=== PATIENT | male | born 1995 | race Caucasian/White ===

== ENCOUNTER 2018-01-06 13:40 | Inpatient (IN) | payer OTHER ==
--- NOTE | 2018-01-06 13:50 | ED ---
GI/ HPI - HPI Summary HPI Summary: A 22 y/o brought in by ambulance presents to the ED c/o N/V since 01/04/2018. He also c/o diarrhea, abd pain, and his urine becoming darker each time he urinates. He was seen at [facility] today and was told he has Marlen-Daniel virus. He also states that he was taking ibuprofen 2 weeks ago when he went to [facility] and was told he tested positive for strep throat but stopped because the pt only has one kidney and was told to stop taking ibuprofen. Based on the lab results from [facility] the pt had a creatinine of 1.9 when his baseline is 1.1 and a BUN of 21. He also claims to have a fever of 103. He denies blood in stool, Chills, Erythema (eyes), Sore throat, Chest pain, Shortness of Breath, Cough, Dysuria, Hematuria, Myalgia, Edema, Rash and Dizziness. - History of Current Complaint Stated Complaint: NAUSEA/VOMITING Hx Obtained From: Patient Onset/Duration: Started Days Ago, Still Present Timing: Lasting Days Severity: Moderate Current Severity: Moderate Location of Pain: LLQ Associated Signs and Symptoms: Positive: Nausea, Vomiting, Diarrhea, Fever - Allergy/Home Medications Allergies/Adverse Reactions: Allergies Allergy/AdvReac Type Severity Reaction Status Date / Time No Known Allergies Allergy Verified 01/06/18 14:32 Home Medications: Home Medications NK [No Home Medications Reported] 01/06/18 [History Confirmed 01/06/18] PMH/Surg Hx/FS Hx/Imm Hx Endocrine/Hematology History: Denies: Hx Diabetes Cardiovascular History: Denies: Hx Hypertension History: Reports: Other Problems/Disorders - has 1 kidney Sensory History: Reports: Hx Contacts or Glasses - Family History Known Family History: Positive: Hypertension, Diabetes Negative: Cardiac Disease Review of Systems Positive: Fever. Negative: Chills Negative: Erythema Negative: Sore Throat Negative: Chest Pain Negative: Shortness Of Breath, Cough Gastrointestinal: Negative - blood in stool Positive: Abdominal Pain, Vomiting, Diarrhea, Nausea Positive: other - urine darker each time. Negative: dysuria, hematuria Negative: Myalgia, Edema Negative: Rash Neurological: Negative - Dizziness All Other Systems Reviewed And Are Negative: Yes Physical Exam - Summary Physical Exam Summary: Constitutional: Well-developed, Well-nourished, Alert. (-) Distressed Skin: Warm, Dry HENT: Normocephalic; Atraumatic Eyes: Conjunctiva normal Neck: Musculoskeletal ROM normal neck. (-) JVD, (-) Stridor, (-) Tracheal deviation Cardio: Rhythm regular, rate normal, Heart sounds normal; Intact distal pulses; The pedal pulses are 2+ and symmetric. Radial pulses are 2+ and symmetric. (-) Murmur Pulmonary/Chest wall: Effort normal. (-) Respiratory distress, (-) Wheezes, (-) Rales Abd: Soft, Tenderness LLQ, (-) Distention, (-) Guarding, (-) Rebound Musculoskeletal: (-) Edema Lymph: (-) Cervical adenopathy Neuro: Alert, Oriented x3 Psych: Mood and affect Normal Triage Information Reviewed: Yes Vital Signs Reviewed: Yes Diagnostics - Laboratory Result Diagrams: 01/06/18 14:17 01/06/18 14:17 Lab Statement: Any lab studies that have been ordered have been reviewed, and results considered in the medical decision making process. - Radiology CXR Radiology Interpretation Completed By: Radiologist - Bilateral interstitial infiltrates. This report has been reviewed by the ED physician. - EKG 14:50 Cardiac Rate: Tachycardia - 142 EKG Rhythm: Sinus Tachycardia Summary of EKG Findings: No STEMI GIGU Course/Dx - Course Course Of Treatment: 22 y/o brought in by ambulance presents to the ED c/o N/V since 01/04/2018. His PE revealed LLQ tenderness. His CXR revealed bilateral interstitial infiltrates. His EKG showed that he was tachycardic. Based on the lab results from [facility] the pt had a creatinine of 1.9 when his baseline is 1.1 and a BUN of 21. Dx: gastroenteritis, dehydration. The pt will be admitted to Dr. Brantley, hospitalist. - Diagnoses Provider Diagnoses: Gastroenteritis, Dehydration - Physician Notifications Discussed Care Of Patient With: Elmer Brantley Time Discussed With Above Provider: 17:30 Instructed by Provider To: Admit As Inpatient Discharge - Sign-Out/Discharge Documenting (check all that apply): Patient Departure - Admit - Discharge Plan Condition: Fair Disposition: ADMITTED TO [facility] - Attestation Statements Document Initiated by Scribe: Yes Documenting Scribe: Kalyan Dhillon Provider For Whom Scribe is Documenting (Include Credential): Boris Barrios MD Scribe Attestation: I, Kalyan Dhillon, scribed for Boris Barrios MD on 01/06/18 at 1905.
[2018-01-06] MEDS ORDERED: Acetaminophen TAB* 325 MG PO ONE (14:14)
--- OUTSIDE RECORDS SUMMARY | 2018-01-06 14:24 | XMS REPORT | Continuity of Care Document ---
:1995 External Reference #:[id number] Author Name Arturo Yates MD Address [address] [place] [address] Care Team Providers Name Role Phone [facility] Care Team Information Executive Director Of Nursing Unavailable [facility] Primary Care Physician Unavailable Payers Type Date Identification Numbers Payment Provider Subscriber Effective: Policy Number: [id number] [employer] Mike Lange 2017 Admin [employer] Name: Student Insurance [address] PayID: [id number] [place] [address] Advance Directives Description No Information Available Problems Date Description Provider Status Onset: 01/03/2018 Obstructive sleep apnea syndrome Arturo Yates MD Active Onset: 01/03/2018 Hypertrophy of tonsils Arturo Yates MD Active Onset: 01/03/2018 Right conductive hearing loss Arturo Yates MD Active Family History Date Family Member(s) Problem(s) Comments General Allergies General Bleeding Disorders General Diabetes General Migraine Mother Allergies Mother Bleeding Disorders Mother Migraine Social History Type Date Description Comments Sex Unknown Occupation Student Tobacco Use Start: Unknown Never Smoked Cigarettes Tobacco Use Start: Unknown Never Smoked Cigars Tobacco Use Start: Unknown Never Smoked A Pipe Smokeless Tobacco Never Used Smokeless Tobacco ETOH Use Currently occasionally consumes alcohol Allergies, Adverse Reactions, Alerts Description No Known Drug Allergies Medications Medication Date Status Form Strength Qnty SIG Indications Ordering Provider No Active 01/04/20 Active Unknown Medications 18 Benzonatate Hx Capsules 100mg Unknown - 01/04/20 18 Penicillin V Hx Tablets 500mg Unknown Potassium 00 - 01/04/20 18 Ventolin HFA Hx Aerosol 108(90Base) Unknown 00 - mcg/Act 01/04/20 18 Immunizations Description No Information Available Vital Signs Date Vital Result Comment 01/03/2018 8:47am Weight 230.50 lb Weight 104.555 kg Height 70 inches 5'10" Height in cm's 177.8 cm BMI (Body Mass Index) 33.1 kg/m2 Results Description No Information Available Procedures Date Code Description Status 01/03/2018 37283 Tympanometry Completed 01/03/2018 70110 Comprehensive Audiogram Completed Encounters Type Date Location Provider Dx Diagnosis Office Visit 01/03/2018 [place],[facility] Arturo Yates, H90.A11 Condctv hear 8:45a 03/04/07 loss, uni, r ear with rstrcd hear cntra side J35.1 Hypertrophy of tonsils G47.33 Obstructive sleep apnea (adult) (pediatric) Plan of Treatment Future Appointment(s):07/04/2018 8:30 am - Arturo Yates MD at [place],[facility] - Arturo Yates MDH90.A11 Conductive hearing loss, unilateral , right ear with restricted hearing on the contralateral sideComments:Patient with right-sided conductive hearing loss previous history of ear surgery, the patient is going to get some information will, ear surgery he has had, in the meantime I also think he should discuss with his parents having his tonsils out. This would improve his apnea symptoms significantly. Ifthis does not resolve his sleep apnea I think a sleep study after tonsillectomy would be helpful.J35.1 Hypertrophy of mbznikmD86.33 Obstructive sleep apnea (adult) ( pediatric)
[2018-01-06 14:27] LABS: Hematocrit 38 % (42-52); Hemoglobin 12.6 g/dl (14.0-18.0); Mean Corpuscular HGB Conc 33 g/dl (31-36); Mean Corpuscular Hemoglobin 27 pg (27-31); Mean Corpuscular Volume 80 fL (80-94); Mean Platelet Volume 8.9 fL (7.4-10.4); Platelet Count 175 10^3/ul (150-450); Red Blood Count 4.76 10^6/ul (4.00-5.40); Red Cell Distribution Width 14 % (10.5-15); White Blood Count 13.8 10^3/ul (3.5-10.8)
[2018-01-06] MEDS: NS 0.9% 1000 ML* 2,000 ML IV ONE (14:28)
[2018-01-06] MEDS ORDERED: NS 0.9% 1000 ML* 1,000 ML IV ONE (14:43)
[2018-01-06 14:55] LABS: EGFR Non-African American 48.8 (>60)
[2018-01-06 15:28] LABS: ABS Basophils 0 10^3/ul (0-0.2); ABS Eosinophils 0.2 10^3/ul (0-0.6); ABS Monocytes 0.9 10^3/ul (0-0.8); ABS Neutrophils 11.7 10^3/ul (1.5-7.7); ABS Nucleated RBC 0 10^3/ul; Eosinophil % 1.5 % (0-6); Lymphocyte % 7.1 % (25-47); Nucleated Red Blood Cells % 0
[2018-01-06] MEDS ORDERED: cefTRIAXone(*) 1 GM in NS 0.9% 50 ML* 50 ML IVPB ONE (15:46)
[2018-01-06] MEDS ORDERED: Ondansetron INJ* 2 MG/ML VIAL IV PRN (16:37)
[2018-01-06 17:12] LABS: Urine Appearance Cloudy; Urine Blood 1+ (Negative); Urine Color Amber; Urine Ketones Trace (Negative); Urine Protein 2+(100 mg/dL) (Negative); Urine Red Blood Cell Trace(0-2/hpf) (Absent); Urine Specific Gravity 1.017 (1.010-1.030); Urine Urobilinogen Negative (Negative); Urine White Blood Cell 3+(>20/hpf) (Absent)
[2018-01-06] MEDS: NS 0.9% 1000 ML* 1,000 ML IV SCH ×2 (19:04→23:56)
[2018-01-06] MEDS: Vancomycin CAP* 125 MG CAP PO SCH (20:02)
[2018-01-06] MEDS: Acetaminophen TAB* 325 MG PO PRN (21:13)
[2018-01-06] MEDS ORDERED: Ibuprofen TAB* 400 MG PO ONE (21:25)
--- NOTE | 2018-01-06 21:36 | HP ---
ADMISSION HISTORY AND PHYSICAL: DATE OF ADMISSION: 01/06/18 PRIMARY CARE PROVIDER: [facility]. HEALTHCARE PROXIES: Parents. CODE STATUS: Full. SOURCE OF INFORMATION: History obtained from interview with the patient, review of [facility] labs. RELIABILITY: Excellent. CHIEF COMPLAINT: Fever and abnormal labs from [facility]. 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 At [place], he had a positive rapid strep test, for which he was started on 10 days of penicillin. At that time, labs indicated white blood cell count of 18 with a left shift and a creatinine of 1.1. At the same time, he had EBV serology sent and did not return until , consistent with early acute EBV. The patient notes that his cough continued for approximately 5 days after 12/23/17, while on the penicillin began to feel better. His last fever of 102 had been around 12/27/17. He had repeat labs on that day at [facility], which were notable for stable creatinine 1.0 and a white blood cell count now of 5.9. He had been taking ibuprofen 800 mg every 8 hours for 4 to 5 days prior to 12/27/17 labs. After , he felt completely recovered, back to his baseline, went out with his friends 3 days prior to presentation and woke up 2 days prior to presentation with nausea, vomiting, and diarrhea. The diarrhea persisted and was occurring every 2 hours. He was unable to eat. He had vomiting. That did not stop for 2 days. He also noted fevers for the last 2 days as high as 104 yesterday, better with Tylenol as well as Motrin. He noted abdominal pain that was relieved with his bowel movements and intermittent shortness of breath, but no headache, lightheadedness, loss of consciousness, changes in the vision, or skin changes other than rectal irritation from his frequent bowel movements. Because of the persistent fevers, diarrhea, nausea and vomiting, he presented to [facility] where repeat labs indicated worsening renal function and a leukocytosis, for which he was sent to [facility] ED. When seen by this author, he indicates his diarrhea is continuing every 1 to 2 hours. Denies chest pain or shortness of breath. He is febrile and feels palpitations with his notable tachycardia to 144 beats per minute. 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 He has a right myringotomy as a child. He had enlarged tonsils as a child with frequent throat infections; asthma as a child, last use of inhaler 8 years prior to presentation. MEDICATIONS: No home medications other than recent 10-day course of penicillin starting on 12/23/17, ending 10 days after that. ALLERGIES: No allergies. FAMILY HISTORY: Significant for a mother with hypertension. His paternal grandfather had CAD. SOCIAL HISTORY: No tobacco. Drinks alcohol once every other week. No illicits. 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 REVIEW OF SYSTEMS: As indicated above on 12/23/17 including fevers, diarrhea, sore throat, nausea, vomiting, inability to eat. Other systems reviewed and negative. PHYSICAL EXAMINATION GENERAL: Well appearing gentleman, lying 20 degrees in bed. HEENT: His oropharynx has enlarged tonsils. No exudate. NECK: He has no palpable lymphadenopathy in the cervical, anterior or posterior chains or supraclavicular. He did have some tenderness to palpation in his right cervical chain. LUNGS: Clear to auscultation. HEART: He has tachycardic heart rate. Regular rhythm. No murmurs, rubs, or gallops. ABDOMEN: Soft, nontender, and nondistended with positive bowel sounds. EXTREMITIES: Warm and well perfused with less than 2 second cap refill. NEUROLOGIC: He is alert and oriented x3. His cranial nerves II through XII were intact. PSYCHIATRIC: He has no apparent anxiety, agitation, or depression. DIAGNOSTIC STUDIES/LAB DATA: Labs reviewed. BUN is 19, creatinine is 1.77. His total bilirubin is 2.3 with an AST of 12, an ALT of 19, and alk phos of 70. CRP is 185. Lipase less than 10. Lactic acid 1.6. White blood cell count is 13.8, 84.9% neutrophils, his hemoglobin is 12.6, platelets 175. Urine is pending. EKG: Sinus tachycardia. Chest x-ray is pending. ASSESSMENT AND PLAN: This is a 22-year-old man with recent diagnosis of rapid strep throat as well as serology consistent with acute EBV at the same time, recently finished 10-day course of penicillin on 01/02/18, now with high fevers and diarrhea. 1. Sepsis. Stool culture sent as well as C. diff in the setting of recent antibiotics. Given ceftriaxone empirically in the emergency room. Blood cultures drawn after seen by this author. We will treat with vancomycin orally empirically for C. diff colitis until results return. He has received 4 L of fluid. Two liters of IV fluids were administered in [facility] prior to presentation. I will continue for another 3 L at 250 cc per hour. Check urine and blood, as indicated above stool and check chest x-ray, which has not yet been completed. Repeat labs tomorrow along with CRP. Ceftriaxone ordered to continue until blood cultures are negative or other etiology is identified. Check for influenza. 2. Acute kidney injury in the setting of dehydration from fever, nausea, vomiting, diarrhea and Motrin use, potentially with acute tubular necrosis as etiology with Motrin. Received 4 L thus far. We will continue with 3 additional liters, follow for heart rate improvement. Repeat tomorrow. Hold NSAIDs. Discussed withholding NSAIDs in the future with the patient, who understands. Other considerations for infectious etiology could include peritonsillar or deep space neck abscesses. The patient has no pain unless deep palpation on the right. I favor holding on scanning his neck until aforementioned about imaging and testing has resulted and elucidates the etiology or is negative, but attention to deep space of his neck and/or tonsils as the source of infection should be paid should no other etiology be identified. Additionally, diagnosis of EBV quite possibly on 12/23/17 with results on . The fevers can continue for 2 weeks and he is not outside the realm, but possible that this is mononucleosis. However, he did have a period of approximately 8 days that he was well without fever arguing against this as sole etiology of his presenting sepsis. DVT prophylaxis: Low risk. Ambulate ad markell and compression stockings. TIME SPENT: Over 60 minutes of time was spent in admission of this patient and greater than half was spent [id number] with the patient. [id number]/[facility] #: [id number] [facility]
[2018-01-07] MEDS: Vancomycin CAP* 125 MG CAP PO SCH (00:24)
[2018-01-07] MEDS: NS 0.9% 1000 ML* 1,000 ML IV SCH (03:57)
[2018-01-07 07:45] LABS: ABS Basophils 0 10^3/ul (0-0.2); ABS Eosinophils 0.3 10^3/ul (0-0.6); ABS Lymphocytes 1.3 10^3/ul (1.0-4.8); ABS Neutrophils 10.2 10^3/ul (1.5-7.7); ABS Nucleated RBC 0 10^3/ul; Eosinophil % 2.6 % (0-6); Hematocrit 34 % (42-52); Hemoglobin 11.2 g/dl (14.0-18.0); Lymphocyte % 9.7 % (25-47); Mean Corpuscular HGB Conc 33 g/dl (31-36); Mean Corpuscular Hemoglobin 27 pg (27-31); Mean Corpuscular Volume 80 fL (80-94); Mean Platelet Volume 9.6 fL (7.4-10.4); Nucleated Red Blood Cells % 0; Platelet Count 175 10^3/ul (150-450); Red Blood Count 4.21 10^6/ul (4.00-5.40); Red Cell Distribution Width 14 % (10.5-15); White Blood Count 12.9 10^3/ul (3.5-10.8)
[2018-01-07 08:07] LABS: EGFR Non-African American 72.2 (>60)
[2018-01-07] MEDS ORDERED: Magnesium Sulfate IV* 3 GM in NS 0.9% 100 ML* 100 ML IVPB ONE (08:10)
[2018-01-07] MEDS: Lactobacillus Acidophilus* 1 TAB PO SCH ×2 (08:43→20:36)
[2018-01-07] MEDS ORDERED: Potassium Chloride LIQUID* 20 MEQ PACKET PO SCH (10:00)
[2018-01-07] MEDS: KCL 20 MEQ/100 ML IVPREMIX* 20 MEQ/100 ML BAG IV SCH ×4 (11:23→22:42)
--- NOTE | 2018-01-07 11:29 | PN ---
Subjective Date of Service: 01/07/18 Interval History: patient reports he is feeling "much better today" but continue to have some mild N/V and diarrhea every 2-3 hours. He denies fever or chills today. No abdominal pain at rest but report RUQ tenderness on exam. Mild sore throat. urinating well - yellow urine. Denies back pain. Objective Active Medications: Acetaminophen (Tylenol Tab*) 650 mg PO Q4H PRN PRN Reason: FEVER/PAIN Last Admin: 01/06/18 21:13 Dose: 650 mg Ceftriaxone Sodium 1 gm/ (Sodium Chloride) 50 mls @ 200 mls/hr IVPB Q24H [facility] Sodium Chloride (Ns 0.9% 1000 Ml*) 1,000 mls @ 250 mls/hr IV PER RATE [facility] Stop: 01/08/18 20:44 Last Admin: 01/07/18 03:57 Dose: 250 mls/hr Potassium Chloride (Potassium Chloride 20 Meq/100 Ml Ivpremix*) 20 meq in 100 mls @ 50 mls/hr IV Q2H [facility] Stop: 01/07/18 14:59 Last Admin: 01/07/18 11:23 Dose: 50 mls/hr Lactobacillus Rhamnosus (Lactobacillus Acidophilus*) 1 tab PO BID [facility] Last Admin: 01/07/18 08:43 Dose: 1 tab Ondansetron HCl (Zofran Inj*) 4 mg IV Q4H PRN PRN Reason: NAUSEA/VOMITING Last Admin: 01/06/18 19:25 Dose: 4 mg Vital Signs - 8 hr 01/07/18 01/07/18 05:19 08:00 Temperature 98.8 F Pulse Rate 121 Respiratory 17 18 Rate Blood Pressure 119/55 (mmHg) O2 Sat by Pulse 100 Oximetry Oxygen Devices in Use Now: None Appearance: 22 yo well developed male sitting up in bed A+Ox3 in NAD. Appears nontoxic Eyes: No Scleral Icterus, PERRLA Ears/Nose/Mouth/Throat: NL Teeth, Lips, Gums, Clear Oropharnyx, Mucous Membranes Moist, - - 2+ tonsils, uvula midline - mild erythema, no exudate noted Neck: NL Appearance and Movements; NL JVP, - - right cervical chain tenderness to deep palpation Respiratory: Symmetrical Chest Expansion and Respiratory Effort, Clear to Auscultation Cardiovascular: NL Sounds; No Murmurs; No JVD, RRR, No Edema Abdominal: - - nondistended soft, mild tenderness in RUQ. NL BS Extremities: No Edema, No Clubbing, Cyanosis Skin: No Rash or Ulcers, No Nodules or Sclerosis Neurological: Alert and Oriented x 3, NL Sensation, NL Muscle Strength and Tone Lines/Tubes/Other Access: Clean, Dry and Intact Peripheral IV Nutrition: Taking PO's Result Diagrams: 01/07/18 06:24 01/07/18 06:24 Microbiology and Other Data: Microbiology 01/06/18 16:00 Stool Culture - Preliminary Stool Strep Group A Stool Gross Appearance - Final Shiga Toxin I & II - Final Negative Shiga Toxin 1 & 2 C. 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 - Patient Problems (1) Sepsis Comment: - Unclear source. High fevers last night now resolved. Improving, stable, appears nontoxic. lactic negative. He has recieved 8 L IVFs continues to have mild tachycardia but overall improvement. - Urine cx negative. Blood cx pending - Chest xray negative. Influenza negative - elevated CRP. Unclear source. Possible deep space neck abscess or peritonsil abscess is on the differential - however I have lower suspicion for this - at this point he is improving and renal function is still elevated (and only has 1 kidney) therefore I am hesistant to give him IV contrast. Continue IVFs, abx and if tomorrow he continues to have tenderness in right cervical chain and/or he develops a high fever or increase SBC - consider imaging neck. (2) HANANE (acute kidney injury) Comment: - creatinine 1.7 on admission suspect secondary to dehydration and NSAID use. CReatinine trending down with IVFs. Repeat BMP in am. (3) Nausea vomiting and diarrhea Comment: - Vomiting resolved. Continues to have frequent stools and mild nausea. Possible gastroenertitis? - Abdomen exam fairly benign (will obtain GB us- mild RUQ tenderness) - C-diff negative - stop po vanco - zofran prn - continue IVFs (4) Electrolyte abnormality Comment: - replace lytes, recheck in am (5) DVT prophylaxis Comment: encourage ambulation (6) Full code status Status and Disposition: inpatient with sepsis. [employer] student. Parents are flying in from [place].
[2018-01-07] MEDS ORDERED: NS 0.45% 1000 ML BAG* 1,000 ML IV SCH (13:00)
[2018-01-07] MEDS ORDERED: cefTRIAXone(*) 1 GM in NS 0.9% 50 ML* 50 ML IVPB SCH (17:00)
[2018-01-07 18:23] LABS: ABS Basophils 0 10^3/ul (0-0.2); ABS Eosinophils 0.5 10^3/ul (0-0.6); ABS Lymphocytes 2.1 10^3/ul (1.0-4.8); ABS Monocytes 1.1 10^3/ul (0-0.8); ABS Neutrophils 10.4 10^3/ul (1.5-7.7); ABS Nucleated RBC 0 10^3/ul; Eosinophil % 3.8 % (0-6); Hematocrit 35 % (42-52); Hemoglobin 11.4 g/dl (14.0-18.0); Mean Corpuscular HGB Conc 33 g/dl (31-36); Mean Corpuscular Hemoglobin 27 pg (27-31); Mean Corpuscular Volume 82 fL (80-94); Nucleated Red Blood Cells % 0; Platelet Count 185 10^3/ul (150-450); Red Blood Count 4.19 10^6/ul (4.00-5.40); Red Cell Distribution Width 14 % (10.5-15); White Blood Count 14.1 10^3/ul (3.5-10.8)
[2018-01-07 18:37] LABS: EGFR Non-African American 102.6 (>60)
[2018-01-07] MEDS: diPHENhydraMINE PO* 25 MG PO PRN (20:36)
[2018-01-07] MEDS: Acetaminophen TAB* 325 MG PO PRN (20:43)
--- NOTE | 2018-01-07 22:18 | PN ---
Hospitalist Progress Note Date of Service: 01/07/18 call for redness in arms after ceftriaxone infusion. one hour after and rash. stopped infusion and changed abx to cipro
[2018-01-08 07:49] LABS: ABS Basophils 0 10^3/ul (0-0.2); ABS Eosinophils 0.7 10^3/ul (0-0.6); ABS Lymphocytes 2.4 10^3/ul (1.0-4.8); ABS Neutrophils 7.6 10^3/ul (1.5-7.7); ABS Nucleated RBC 0 10^3/ul; Eosinophil % 5.8 % (0-6); Hematocrit 34 % (42-52); Hemoglobin 11.2 g/dl (14.0-18.0); Lymphocyte % 20.3 % (25-47); Mean Corpuscular HGB Conc 33 g/dl (31-36); Mean Corpuscular Hemoglobin 26 pg (27-31); Mean Corpuscular Volume 79 fL (80-94); Mean Platelet Volume 9.1 fL (7.4-10.4); Nucleated Red Blood Cells % 0; Platelet Count 216 10^3/ul (150-450); Red Blood Count 4.25 10^6/ul (4.00-5.40); Red Cell Distribution Width 14 % (10.5-15); White Blood Count 11.7 10^3/ul (3.5-10.8)
[2018-01-08 08:34] LABS: EGFR Non-African American 131.5 (>60)
[2018-01-08] MEDS ORDERED: Ciprofloxacin 400MG IVPREMIX(* 400 MG/200 ML BAG IVPB SCH (09:00)
[2018-01-08] MEDS: Lactobacillus Acidophilus* 1 TAB PO SCH ×2 (09:04→19:33)
[2018-01-08] MEDS ORDERED: Potassium Chlor TAB* 20 MEQ TAB.ER PO ONE (10:33)
[2018-01-08] MEDS ORDERED: Magnesium Sulfate 2 GM IV* 2 GM/50 ML BAG IVPB ONE (18:29)
[2018-01-08] MEDS ORDERED: Albuterol 2.5 MG/3 ML NEB.SOL* (0.083%) INH PRN (18:29)
--- NOTE | 2018-01-08 18:37 | PN ---
Subjective Date of Service: 01/08/18 Interval History: Patient seen and examined, diarrhea improving, states his breathing feels off with inspiration but not SOB. Per mother, patient had history of asthma. No fevers or chills, remains with cough. Objective Active Medications: Acetaminophen (Tylenol Tab*) 650 mg PO Q4H PRN PRN Reason: FEVER/PAIN Last Admin: 01/07/18 20:43 Dose: 650 mg Albuterol (Ventolin 2.5 Mg/3 Ml Neb.Zita*) 2.5 mg INH Q4H PRN PRN Reason: SOB/WHEEZING Diphenhydramine HCl (Benadryl Po*) 25 mg PO Q6H PRN PRN Reason: ITCHING Last Admin: 01/07/18 20:36 Dose: 25 mg Ciprofloxacin/Dextrose (Cipro 400 Mg Ivpremix(*)) 400 mg in 200 mls @ 200 mls/ hr IVPB Q12H [facility] Last Admin: 01/08/18 09:04 Dose: 200 mls/hr Magnesium Sulfate (Magnesium Sulfate 2 Gm Iv*) 2 gm in 50 mls @ 50 mls/hr IVPB ONCE ONE Stop: 01/08/18 19:28 Lactobacillus Rhamnosus (Lactobacillus Acidophilus*) 1 tab PO BID [facility] Last Admin: 01/08/18 09:04 Dose: 1 tab Ondansetron HCl (Zofran Inj*) 4 mg IV Q4H PRN PRN Reason: NAUSEA/VOMITING Last Admin: 01/06/18 19:25 Dose: 4 mg Vital Signs - 8 hr 01/08/18 12:13 Temperature 98.6 F Pulse Rate 95 Respiratory 18 Rate Blood Pressure 132/72 (mmHg) O2 Sat by Pulse 98 Oximetry Oxygen Devices in Use Now: None Appearance: alert, NAD Eyes: No Scleral Icterus, PERRLA Ears/Nose/Mouth/Throat: NL Teeth, Lips, Gums, Mucous Membranes Moist Neck: NL Appearance and Movements; NL JVP, Trachea Midline Respiratory: Symmetrical Chest Expansion and Respiratory Effort, - - RLL expiratory wheeze, good air entry Abdominal: NL Sounds; No Tenderness; No Distention Extremities: No Edema, No Clubbing, Cyanosis Skin: No Rash or Ulcers Neurological: Alert and Oriented x 3, NL Gait Nutrition: Taking PO's Result Diagrams: 01/08/18 07:29 01/08/18 07:29 Microbiology and Other Data: Microbiology 01/06/18 16:00 Stool Culture - Preliminary Stool Strep Group A Stool Gross Appearance - Final Shiga Toxin I & II - Final Negative Shiga Toxin 1 & 2 C. difficile DNA Amplification - Final 027 Presumptive NEGATIVE Toxigenic C.diff NEGATIVE 01/06/18 16:38 Influenza Types A,B Antigen - Final Nasal Specimen received for Influenza A/B Molecular testing Diagnostic Imaging: Patient Name: AZUCENA RAYMUNDO Medical Record#: [id number] Ordering Physician: Elmer Brantley MD Acct.#: [id number] : 1995 Age: 22 Sex: M Location: EMERGENCY DEPARTMENT Exam Date: 01/06/18 163 ADM Status: REG ER Order Information: CHEST PA & LAT 2 VWS Accession Number: [id number] CPT: 78319 INDICATION: Sepsis. COMPARISON: There are no relevant prior studies available for comparison. TECHNIQUE: Dual-energy PA and lateral views of the chest were obtained. FINDINGS: The heart is within normal limits in size. Mediastinal and hilar contours appear within normal limits. There are bilateral interstitial infiltrates. No pleural effusion is seen. IMPRESSION: BILATERAL INTERSTITIAL INFILTRATES. 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 - Patient Problems (1) CAP (community acquired pneumonia) Code(s): J18.9 - PNEUMONIA, UNSPECIFIED ORGANISM SNOMED Code(s): 990738766 Comment: - Strep and legionella negative - Obtained procalcitonin today which is elevated at 1.7 - Change to levaquin, blood cultures negative - Order sputum culture - Monitor renal function while on levaquine given cingenital single kidney (2) HANANE (acute kidney injury) Code(s): N17.9 - ACUTE KIDNEY FAILURE, UNSPECIFIED SNOMED Code(s): 29029871 Comment: - Resolved, likely 2/2 fever/dehydration - Continue to monitor (3) Diarrhea Code(s): R19.7 - DIARRHEA, UNSPECIFIED SNOMED Code(s): 34530195 Comment: - Improved, supportive care, advance diet (4) Electrolyte abnormality Code(s): E87.8 - OTH DISORDERS OF ELECTROLYTE AND FLUID BALANCE, NEC SNOMED Code(s): 589071532 Comment: - Replete mag and K and follow labs (5) Sepsis Comment: - Fevers resolved, continue to treat for CAP - I am less inclined to consider EBV, as chest xray has bibasilar infiltrates and failed outpatient treatment - BP and HR stable with normal renal function - Resolved (6) DVT prophylaxis Code(s): SSK9018 - SNOMED Code(s): 358008798 Comment: - Ambulatory (7) Full code status Code(s): Z78.9 - OTHER SPECIFIED HEALTH STATUS SNOMED Code(s): 360419482 Status and Disposition: Inpatient, continue current care. Coordinated with patient and his mother.
[2018-01-08] MEDS: diPHENhydraMINE PO* 25 MG PO PRN (19:33)
[2018-01-08] MEDS: Levofloxacin 500 MG IVPREMIX(* 500 MG/100 ML BAG IVPB SCH (20:58)
[2018-01-09] MEDS: Artificial Tears* 15 ML BTL BOTH EYES PRN ×3 (02:04→22:46)
[2018-01-09] MEDS: Lactobacillus Acidophilus* 1 TAB PO SCH ×2 (09:20→20:45)
[2018-01-09] MEDS ORDERED: guaiFENesin LIQ* 100 MG/5 ML UDC PO PRN (10:18)
[2018-01-09] MEDS: Hydrocortisone 1% CREAM* 30 GM TUBE TOPICAL SCH ×4 (11:42→20:28)
--- NOTE | 2018-01-09 14:49 | PN ---
Subjective Date of Service: 01/09/18 Interval History: Patient seen and examined. Feels his breathing is better today since having albuterol treatments. Still with productive cough. No fevers last 24 hours, denies chills, no SOB, diarrhea is slowing down and he is tolerating soft diet. States he had dry eyes overnight and the rash on his left hand which had resolved is itching again but states that started before his antibiotic was changed yesterday. Objective Active Medications: Acetaminophen (Tylenol Tab*) 650 mg PO Q4H PRN PRN Reason: FEVER/PAIN Last Admin: 01/07/18 20:43 Dose: 650 mg Albuterol (Ventolin 2.5 Mg/3 Ml Neb.Zita*) 2.5 mg INH Q4H PRN PRN Reason: SOB/WHEEZING Last Admin: 01/09/18 03:25 Dose: 2.5 mg Diphenhydramine HCl (Benadryl Po*) 25 mg PO Q6H PRN PRN Reason: ITCHING Last Admin: 01/08/18 19:33 Dose: 25 mg Guaifenesin (Robitussin*) 5 ml PO Q6H PRN PRN Reason: COUGH Hydrocortisone (Hytone Cream 1%*) 1 applic TOPICAL QID [facility] Last Admin: 01/09/18 14:32 Dose: 1 applic Levofloxacin/Dextrose (Levaquin 500 Mg Ivpremix(*)) 500 mg in 100 mls @ 100 mls /hr IVPB Q24H [facility] Last Admin: 01/08/18 20:58 Dose: 100 mls/hr Lactobacillus Rhamnosus (Lactobacillus Acidophilus*) 1 tab PO BID [facility] Last Admin: 01/09/18 09:20 Dose: 1 tab Polyvinyl Alcohol (Polyvinyl Alcohol 1.4% Opth*) 2 drop BOTH EYES Q2H PRN PRN Reason: DRY EYE AND DISCOMFORT Last Admin: 01/09/18 14:30 Dose: 2 drop Vital Signs - 8 hr 01/09/18 01/09/18 08:00 11:52 Temperature 98.6 F Pulse Rate 79 Respiratory 18 16 Rate Blood Pressure 120/66 (mmHg) O2 Sat by Pulse 98 Oximetry Oxygen Devices in Use Now: None Appearance: Alert, NAD Eyes: No Scleral Icterus, PERRLA Ears/Nose/Mouth/Throat: NL Teeth, Lips, Gums, Mucous Membranes Moist Neck: NL Appearance and Movements; NL JVP, Trachea Midline Respiratory: Symmetrical Chest Expansion and Respiratory Effort, - - wheeze improved today, good air entry Cardiovascular: NL Sounds; No Murmurs; No JVD, RRR, No Edema Abdominal: NL Sounds; No Tenderness; No Distention Extremities: No Edema, No Clubbing, Cyanosis Skin: No Nodules or Sclerosis, - - mild pruritic erythema to dorsal aspect left hand, no hives Neurological: Alert and Oriented x 3, NL Gait Nutrition: Taking PO's Result Diagrams: 01/08/18 07:29 01/08/18 07:29 Microbiology and Other Data: Microbiology 01/06/18 16:00 Stool Culture - Preliminary Stool Strep Group A Stool Gross Appearance - Final Shiga Toxin I & II - Final Negative Shiga Toxin 1 & 2 C. difficile DNA Amplification - Final 027 Presumptive NEGATIVE Toxigenic C.diff NEGATIVE 01/06/18 16:38 Influenza Types A,B Antigen - Final Nasal Specimen received for Influenza A/B Molecular testing Diagnostic Imaging: Patient Name: AZUCENA RAYMUNDO Medical Record#: [id number] Ordering Physician: Elmer Brantley MD Acct.#: [id number] : 1995 Age: 22 Sex: M Location: EMERGENCY DEPARTMENT Exam Date: 01/06/181630 ADM Status: REG ER Order Information: CHEST PA & LAT 2 VWS Accession Number: [id number] CPT: 26995 INDICATION: Sepsis. COMPARISON: There are no relevant prior studies available for comparison. TECHNIQUE: Dual-energy PA and lateral views of the chest were obtained. FINDINGS: The heart is within normal limits in size. Mediastinal and hilar contours appear within normal limits. There are bilateral interstitial infiltrates. No pleural effusion is seen. IMPRESSION: BILATERAL INTERSTITIAL INFILTRATES. 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 - Patient Problems (1) CAP (community acquired pneumonia) Code(s): J18.9 - PNEUMONIA, UNSPECIFIED ORGANISM SNOMED Code(s): 878931703 Comment: - Strep and legionella negative - Per his mother, had asthma as a child - Procalcitonin elevated at 1.7 - Changed to levaquin, blood cultures negative (had rx to ceftriaxone) - Obtain sputum culture - Monitor renal function while on levaquin given congenital single kidney - Nebs PRN (2) Antibiotic-induced allergic rash Code(s): L27.0 - GEN SKIN ERUPTION DUE TO DRUGS AND MEDS TAKEN INTERNALLY; T36.95XA - ADVERSE EFFECT OF UNSP SYSTEMIC ANTIBIOTIC, INIT ENCNTR SNOMED Code (s): 30083193 Comment: - Erythema and pruritis to ceftriaxone - Rash had resolved with benadryl and discontinuation of atbx, rash to left hand started again last evening, but does not appear to be related to levaquin - Continue benadryl and add hydrocortisone topical today PRN (3) HANANE (acute kidney injury) Code(s): N17.9 - ACUTE KIDNEY FAILURE, UNSPECIFIED SNOMED Code(s): 58600518 Comment: - Resolved, likely 2/2 fever/dehydration - Continue to monitor (4) Diarrhea Code(s): R19.7 - DIARRHEA, UNSPECIFIED SNOMED Code(s): 16665801 Comment: - Cotinued improvement, supportive care, advance diet (5) Electrolyte abnormality Code(s): E87.8 - OTH DISORDERS OF ELECTROLYTE AND FLUID BALANCE, NEC SNOMED Code(s): 360708803 Comment: - Replete mag and K and follow labs (6) Sepsis Comment: - Fevers resolved, continue to treat for CAP - I am less inclined to consider EBV, as chest xray has bibasilar infiltrates and failed outpatient treatment - BP and HR stable with normal renal function - Resolved (7) DVT prophylaxis Code(s): RUP8736 - SNOMED Code(s): 344380020 Comment: - Ambulatory (8) Full code status Code(s): Z78.9 - OTHER SPECIFIED HEALTH STATUS SNOMED Code(s): 574833180 Status and Disposition: Inpatient, continue current care. Coordinated with patient and his mother. Likely DC in AM
[2018-01-09 15:02] LABS: Hematocrit 37 % (42-52); Hemoglobin 12.6 g/dl (14.0-18.0); Mean Corpuscular HGB Conc 34 g/dl (31-36); Mean Corpuscular Hemoglobin 27 pg (27-31); Mean Corpuscular Volume 80 fL (80-94); Mean Platelet Volume 8.4 fL (7.4-10.4); Platelet Count 283 10^3/ul (150-450); Red Blood Count 4.69 10^6/ul (4.00-5.40); Red Cell Distribution Width 14 % (10.5-15); White Blood Count 8.3 10^3/ul (3.5-10.8)
[2018-01-09 15:32] LABS: EGFR Non-African American 160.8 (>60)
[2018-01-09 15:51] LABS: ABS Basophils 0 10^3/ul (0-0.2); ABS Eosinophils 0.7 10^3/ul (0-0.6); ABS Lymphocytes 3.5 10^3/ul (1.0-4.8); ABS Monocytes 1.1 10^3/ul (0-0.8); ABS Neutrophils 2.9 10^3/ul (1.5-7.7); ABS Nucleated RBC 0 10^3/ul; Eosinophil % 8.9 % (0-6); Lymphocyte % 42.5 % (25-47); Nucleated Red Blood Cells % 0.1
[2018-01-09] MEDS: Magnesium Oxide TAB* 400 MG PO SCH (18:33)
[2018-01-09] MEDS: diPHENhydraMINE PO* 25 MG PO PRN (20:45)
[2018-01-09] MEDS: Levofloxacin 500 MG IVPREMIX(* 500 MG/100 ML BAG IVPB SCH (20:45)
[2018-01-10] MEDS: Magnesium Oxide TAB* 400 MG PO SCH (07:51)
[2018-01-10] MEDS: Lactobacillus Acidophilus* 1 TAB PO SCH (07:51)
[2018-01-10] MEDS: Hydrocortisone 1% CREAM* 30 GM TUBE TOPICAL SCH ×2 (10:42→13:38)
[2018-01-10 12:51] VITALS: BP 126/70
--- NOTE | 2018-01-21 07:47 | DS ---
CC: Dr. Bharat Montiel, [facility].* DISCHARGE SUMMARY: DATE OF ADMISSION: 01/06/18. DATE OF DISCHARGE: 01/10/18. MY ATTENDING: Dr. Bharat Montiel.* (DICTATED BY ORIN MAYORGA NP) HOSPITAL COURSE: This is a very pleasant 22-year-old male patient who came to the emergency department with a chief complaint of fever and abnormal labs. The patient had been going to the clinic at [facility]. 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 The patient had a 10-day course of antibiotics to which he initially responded well and then he had a recurrent fever. Upon going back to the [facility] [place], they referred him to the emergency department for further evaluation. At that time, the patient was admitted for sepsis of unclear source, acute kidney injury , nausea, vomiting and diarrhea and some electrolyte abnormalities. The patient 's lytes were repleted. His chest x-ray was re-evaluated later in the week, as he initially was not responding to treatment and still had a cough and was getting intermittent fevers. Upon reevaluation of his chest x-ray, it appeared that he did have a community- acquired pneumonia, which was probably secondary to his original infection. His procalcitonin was elevated at 1.7. Also of note , his stool culture was positive for group A Strep as well. The patient did have a reaction to ceftriaxone. He was initially placed on ceftriaxone when he was admitted. After the reaction, he was changed to Levaquin to which he responded well. He was also placed on some nebulizers. The patient's mother said that he had a history of asthma as a child and was having some wheezing. Again, he responded well to nebs and the change in antibiotic therapy. The patient was readied for discharge on 01/10/18 in stable condition. DISCHARGE DIAGNOSES: 1. Community-acquired pneumonia, status post strep infection. 2. Antibiotic induced allergic reaction. 3. Acute kidney injury, resolved. 4. Diarrhea, resolved. 5. Electrolyte disturbances, resolved. 6. Sepsis, resolved. 7. Mild transaminitis. DISCHARGE MEDICATIONS: Include: 1. Singulair 10 mg p.o. at bedtime. 2. Mag-Ox 400 mg p.o. daily. 3. Levaquin 500 mg p.o. daily. 4. Bacid one tab p.o. b.i.d. 5. Hydrocortisone cream topical two times a day as needed. 6. Albuterol inhaler one puff q.4 hours as needed for wheezing. REVIEW OF SYSTEMS: Ten-point review of systems is negative except as noted above. PHYSICAL EXAMINATION: On day of discharge, the patient is alert and in no acute distress. Vital signs: Blood pressure 126/70, heart rate 70, respiratory rate 18, O2 saturation 97% on room air with a temperature of 98.1. HEENT: The patient is atraumatic and noncontributory. PERRLA with nonicteric sclerae. Neck is supple, nontender. No JVD noted. No carotid bruit auscultated. Cardiovascular: S1, S2 present. No murmurs, gallops, or rubs noted. Rate and rhythm are regular. Lungs are clear at the apices, mildly diminished at the bases bilaterally with no wheezing or rales or rhonchi. Abdomen is soft, nontender, nondistended. Positive bowel sounds in all 4 quadrants. : Deferred. Musculoskeletal: There is no clubbing, no cyanosis , and no edema. He has +2 distal pulses palpable, full range of motion and a steady gait. Neurologic: Grossly intact with no focal deficits. Skin: Rash on the dorsal aspect of the hands. It is currently resolved with no erythema or hives noted. Psychiatric: Cooperative and appropriate. DISCHARGE LABS: WBC is 8.3, RBC is 4.69, hemoglobin 12.6, hematocrit 37, platelets 283. Sodium 137, potassium 3.7, chloride 103, BUN 7, creatinine 0.63 , GFR is 160.8, glucose 111. Calcium 8.5. Magnesium 1.7. Bilirubin 0.70. AST 62, ALT 90, and alk phos 120. CRP 118, down from 190. Procalcitonin was 1.7. DISPOSITION: The patient was discharged to home in the care of his parents. All questions were answered. The patient stated his understanding of his discharge instructions and medications, followups. The patient's mother states that the patient has been using the [facility] [place] and wished to follow up with [facility], as he does not have a primary care provider in the area. The patient was set up to be seen by Dr. Bharta Montiel following discharge who will continue to follow the patient. ORIN MAYORGA, [employer] [id number]/[facility] #: [id number] [facility] SHORECuong
== END 2018-01-10 15:00 | disposition home or self-care (01) | DRG 871 ==
LOC: ED 13:40 → MED 16:37
PROVIDERS: ADMIT Internal Medicine; ATTEND Internal Medicine
DX: A41.9 Sepsis, unspecified organism (principal); J18.9 Pneumonia, unspecified organism; Q60.0 Renal agenesis, unilateral; N17.9 Acute kidney failure, unspecified; J45.909 Unspecified asthma, uncomplicated; J35.1 Hypertrophy of tonsils; E86.0 Dehydration; L27.0 Generalized skin eruption due to drugs and medicaments taken internally; T36.95XA Adverse effect of unspecified systemic antibiotic, initial encounter; Y92.239 Unspecified place in hospital as the place of occurrence of the external cause; R19.7 Diarrhea, unspecified; E87.8 Other disorders of electrolyte and fluid balance, not elsewhere classified; R11.2 Nausea with vomiting, unspecified; Z82.49 Family history of ischemic heart disease and other diseases of the circulatory system; Z72.89 Other problems related to lifestyle; Z83.3 Family history of diabetes mellitus
CPT/HCPCS: 36415; 71046; 76705; 80048; 80053; 81003; 81015; 83605; 83690; 83735; 84145; 85025; 86140; 86703; 87040; 87045; 87046; 87070; 87077; 87086; 87205; 87493; 87899; 93005; 94640; 99284; A9270-GY; J0696; J0744; J1956; J2405; J3475; J3480